=== PATIENT | female | born 1990 | race Caucasian/White ===

== ENCOUNTER 2020-09-29 02:45 | Inpatient (IN) ==
[2020-09-29] MEDS ORDERED: D5 1/2 NS 1000 ML 1,000 ML IV ONE (03:02)
[2020-09-29 03:09] LABS: BILIRUBIN,URINE NEGATIVE (NEGATIVE); BLOOD/HEMOGLOBIN,URINE 4+ (NEGATIVE); GLUCOSE, URINE NEGATIVE (NEGATIVE); KETONES,URINE NEGATIVE (NEGATIVE); LEUKOCYTE ESTERASE ,URINE NEGATIVE (NEGATIVE); NITRITES,URINE NEGATIVE (NEGATIVE); PROTEIN,URINE 1+ (NEGATIVE); UROBILINOGEN,URINE NORMAL (NORMAL)
[2020-09-29 03:14] LABS: AMNISURE ROM TEST THERE IS A RUPTURE (NO RUPTURE); APPEARANCE,URINE HAZY (CLEAR); COLOR,URINE YELLOW (YELLOW)
[2020-09-29 03:17] VITALS: BMI 26.2
[2020-09-29 03:18] LABS: BACTERIA,URINE 1+ /HPF (NEGATIVE); SQUAMOUS EPITHELIAL CELL,UR NUMEROUS /HPF (NEGATIVE)
[2020-09-29] MEDS ORDERED: PITOCIN ONE ×2 (03:34→04:03)
[2020-09-29 03:36] LABS: BASOPHILS # (AUTO) 0.1 X10^3/uL (0.0-0.1); BASOPHILS % (AUTO) 0.6 % (0.2-1.0); EOSINOPHILS # (AUTO) 0.2 x10^3/uL (0.0-0.2); EOSINOPHILS % (AUTO) 1.3 % (0.9-2.9); HEMATOCRIT 36.4 % (36.0-47.0); HEMOGLOBIN 11.5 g/dL (12.0-16.0); LYMPHOCYTES # (AUTO) 2.7 X10^3/uL (1.3-2.9); LYMPHOCYTES % (AUTO) 18.8 % (21.0-51.0); MEAN CORPUSCULAR HEMOGLOBIN 26.2 pg (27.0-34.0); MEAN CORPUSCULAR HGB CONC 31.5 g/dL (33.0-35.0); MEAN CORPUSCULAR VOLUME 82.9 fL (80.0-100.0); MEAN PLATELET VOLUME 9.4 fL (7.4-11.0); MONOCYTES # (AUTO) 1.1 x10^3/uL (0.3-0.8); MONOCYTES % (AUTO) 7.6 % (0.0-13.0); NEUTROPHILS # (AUTO) 10.1 x10^3/uL (2.2-4.8); NEUTROPHILS % (AUTO) 71.7 % (42.0-75.0); PLATELET COUNT 365 X10^3/uL (150.0-450.0); RED BLOOD COUNT 4.38 X10^6/uL (3.5-5.4); RED CELL DISTRIBUTION WIDTH 15.6 % (11.6-16.5); WHITE BLOOD COUNT 14.1 X10^3/uL (3.6-10.0)
[2020-09-29] MEDS ORDERED: D5 1/2 NS 1000 ML 1,000 ML IV SCH ×2 (03:41→04:00)
[2020-09-29] MEDS ORDERED: PITOCIN IVP ONE (03:41)
[2020-09-29 03:42] LABS: ALANINE AMINOTRANSFERASE 22 Units/L (12-78); ALBUMIN 2.7 g/dL (3.4-5.0); ALKALINE PHOSPHATASE 232 Units/L (46-116); ASPARTATE AMINO TRANSFERASE 22 Units/L (15-37); BLOOD UREA NITROGEN 11 mg/dL (7-18); CALCIUM 8.9 mg/dL (8.5-10.1); CHLORIDE 104 mmol/L (98-107); COR CA(FOR HYPOALB) 9.9 mg/dL (8.5-10.1); CREATININE 0.85 mg/dL (0.55-1.02); SODIUM 139 mmol/L (136-145); TOTAL PROTEIN 6.9 g/dL (6.4-8.2); eGFR NON BLACK RACES > 60 (>60)
[2020-09-29] MEDS ORDERED: D5 1/2 NS 1000 ML 1,000 ML with PITOCIN 20 UNITS IV SCH ×2 (03:52)
[2020-09-29] MEDS ORDERED: PHENERGAN INJ 25 MG IM PRN (03:52)
[2020-09-29] MEDS ORDERED: MOTRIN TAB 800 MG PO PRN (03:52)
[2020-09-29] MEDS ORDERED: D5LR 1L W PITOCIN 10 UNITS/L 10 UNITS/1,000 ML BAG IV ONE (04:03)
[2020-09-29] MEDS ORDERED: D5 1/2 NS 1L W PITOCIN 20 UNITS/L 20 UNITS/1,000 ML BAG IV ONE (05:01)
[2020-09-29] MEDS ORDERED: DERMOPLAST PAIN RELIEF SPRAY TOP PRN (05:24)
[2020-09-29] MEDS ORDERED: MILK OF MAGNESIA PO PRN (05:24)
[2020-09-29] MEDS ORDERED: AMBIEN PO PRN (05:24)
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
[2020-09-29] MEDS: PRENATAL PLUS PO SCH (08:48)
[2020-09-29] MEDS ORDERED: SYNTHROID 100 mcg TAB PO SCH (16:30)
[2020-09-30 05:22] LABS: HEMATOCRIT 34.2 % (36.0-47.0); HEMOGLOBIN 11.2 g/dL (12.0-16.0)
--- NOTE | 2020-09-30 07:00 | NOTE.PROOB ---
progress Note OB- Subjective Data Subjective: No complaints, decreased lochia. Tolerating regular diet. No N/V. Ambulating well. No dysuria. Objective Data Result Diagrams: 09/30/20 04:30 09/29/20 03:12 Objective Data: CV= RRR no MRG Lungs=CTA Bilaterally Abd=(+) BS, soft, NTND, Fundus firm/NT/ at 3 cm below umbilicus. Ext=no edema, NT, no cords Assessment Assessment: stable and ready to go home Plan (1) Gave to child recently: (2) (spontaneous vaginal delivery): Plan: discharge home
[2020-09-30 08:40] VITALS: BP 125/87
[2020-09-30] MEDS: PRENATAL PLUS PO SCH (09:19)
[2020-09-30] MEDS ORDERED: ADACEL or BOOSTRIX TDaP VACCINE IM ONE (11:00)
== END 2020-09-30 10:50 | disposition home or self-care (01) | DRG 807 ==
LOC: ER 02:52 → LD 03:37 → MED/SURG 05:21
PROVIDERS: ADMIT Obstetrics & Gynecology; ATTEND Obstetrics & Gynecology
DX: Z37.0 Single live birth; O80 Encounter for full-term uncomplicated delivery; Z3A.39 39 weeks gestation of pregnancy; Z23 Encounter for immunization; Z20.828 Contact with and (suspected) exposure to other viral communicable diseases